=== PATIENT | female | born 1980 | race African-American/Black ===

== ENCOUNTER 2016-06-07 14:42 | Emergency (ER) | payer OTHER ==
[~2016-06-07] VITALS: Ht 167.6 cm; Wt 104.3 kg
[~2016-06-07 14:42] MED LIST: AMOX1TAB61 PO; ASCO500T PO; HYDR12.58 PO; IBUP200T77 PO; MULT-470 PO; ONDA4TAB10 SL
[2016-06-07 15:00] VITALS: BP 131/72
[2016-06-07] MEDS ORDERED: cefTRIAXone IM 250 MG VIAL IM ONE (15:00)
[2016-06-07] MEDS ORDERED: metroNIDAZOLE 500 MG TABLET PO ONE (15:00)
[2016-06-07] MEDS ORDERED: AZITHROMYCIN 250 MG TABLET. PO ONE (15:00)
--- NOTE | 2016-06-07 15:08 | PHYS DOC ---
Past Medical History Past Medical History: No Pertinent History Past Surgical History: , Tubal ligation Alcohol Use: None Drug Use: None Adult General Chief Complaint Chief Complaint: VAGINAL PROBLEM HPI HPI Patient is a 35 year old female with no significant medical history who presents with vaginal discharge and irritation for a couple days. Patient states she is going through a divorce. She states she was from the for couple months. She states they were trying to work things out. She states the and her had unprotected sex recently, patient states she started having vaginal irritation and discharge after that. Patient states she has history of tubal ligation. Review of Systems Review of Systems Constitutional: Denies fever or chills [] Eyes: Denies change in visual acuity, redness, or eye pain [] HENT: Denies nasal congestion or sore throat [] Respiratory: Denies cough or shortness of breath [] Cardiovascular: No additional information not addressed in HPI [] GI: Denies abdominal pain, nausea, vomiting, bloody stools or diarrhea [] : vaginal discharge and irritation Musculoskeletal: Denies back pain or joint pain [] Integument: Denies rash or skin lesions [] Neurologic: Denies headache, focal weakness or sensory changes [] Endocrine: Denies polyuria or polydipsia [] Current Medications Current Medications Current Medications Medications (Trade) Dose Ordered Sig/Jason Start Time Stop Time Status Last Admin Dose Admin Azithromycin (Zithromax) 1,000 mg 1X ONCE 06/07/16 15:00 06/07/16 15:01 DC 06/07/16 15:06 1,000 MG Ceftriaxone Sodium (Rocephin Im) 250 mg 1X ONCE 06/07/16 15:00 06/07/16 15:01 DC 06/07/16 15:07 250 MG Fluconazole (Diflucan) 150 mg 1X ONCE 06/07/16 15:45 06/07/16 15:46 UNV Metronidazole (Flagyl) 2,000 mg 1X ONCE 06/07/16 15:00 06/07/16 15:01 DC 06/07/16 15:07 2,000 MG Allergies Allergies Allergies Coded Allergies Type Severity Reaction Last Updated Verified No Known Drug Allergies 01/02/16 No Physical Exam Physical Exam Constitutional: Well developed, well nourished, no acute distress, non-toxic appearance. [] HENT: Normocephalic, atraumatic, bilateral external ears normal, oropharynx moist, no oral exudates, nose normal. [] Eyes: PERRLA, EOMI, conjunctiva normal, no discharge. [] Neck: Normal range of motion, no tenderness, supple, no stridor. [] Cardiovascular:Heart rate regular rhythm, no murmur [] Lungs & Thorax: Bilateral breath sounds clear to auscultation [] Abdomen: Bowel sounds normal, soft, no tenderness, no masses, no pulsatile masses. [] Pelvic exam External pelvic appears normal, cervix is closed no CMT. No adnexal tenderness. Small amount of greenish discharge in the vaginal vault. Skin: Warm, dry, no erythema, no rash. [] Back: No tenderness, no CVA tenderness. [] Extremities: No tenderness, no cyanosis, no clubbing, ROM intact, no edema. [] Neurologic: Alert and oriented X 3, normal motor function, normal sensory function, no focal deficits noted. [] Psychologic: Affect normal, judgement normal, mood normal. [] Current Patient Data Lab Values Laboratory Tests Test 06/07/16 14:50 Urine Collection Type Unknown Urine Color [place] Urine Clarity Clear Urine pH 7.0 Urine Specific [place] 1.025 Urine Protein Negativemg/dL (NEG-TRACE) Urine Glucose (UA) Negativemg/dL (NEG) Urine Ketones (Stick) Tracemg/dL (NEG) Urine Blood Negative (NEG) Urine Nitrite Negative (NEG) Urine Bilirubin Small (NEG) Urine Urobilinogen Dipstick 4.0mg/dL (0.2 mg/dL) Urine Leukocyte Esterase Large (NEG) Urine RBC 0/HPF (0-2) Urine WBC 20-40/HPF (0-4) Urine Squamous Epithelial Cells Mod/LPF Urine Bacteria Few/HPF (0-FEW) Urine Hyaline Casts Occasional/HPF Urine Mucus Marked/LPF Urine Yeast Present/HPF Microbiology 06/07/16 Wet Prep - Final, Complete EKG EKG [] Radiology/Procedures Radiology/Procedures [] Course & Med Decision Making Course & Med Decision Making Pertinent Labs and Imaging studies reviewed. (See chart for details) Patient is in the ED with concern for STD because she's had vaginal itching and irritation for couple days. She's had unprotected sex with the ex- who she is going through a divorce with. She is given standard STD treatment of Flagyl Rocephin and azithromycin. Her wet prep came back positive for yeast infection same as her urine. Her urine was positive for UTI. She was discharged with fluconazole. Discharged with Bactrim for UTI. Encouraged to contact her sex partners let them know she was treated for STDs and ask them to seek treatment too. Encouraged to follow-up with her own PCP or the health department for further STD concerns. Dragon Disclaimer Dragon Disclaimer This electronic medical record was generated, in whole or in part, using a voice recognition dictation system. Departure Departure Impression: Primary Impression: Urinary tract infection Additional Impressions: Concern about STD in female without diagnosis Yeast infection Disposition: 01 HOME, SELF-CARE Condition: STABLE Referrals: UNKNOWN PCP NAME (PCP) Follow-up with your own doctor in 1-2 weeks Patient Instructions: Urinary Tract Infection Additional Instructions: You were seen for STD concerns. You were treated prophylaxis in the ED. You have yeast infection which causes vaginal discharge. You also have urinary tract infection. We gave you antibiotic prescription for this. Take it as prescribed. Follow-up with your own doctor or the health department in 1-2 weeks. Please contact all your sex partners, let them know you were treated for STDs and ask them to seek treatment too. Use protection all the time. Scripts Fluconazole 150 Mg Tablet1 Mg PO ONCE #1 TAB Take it in 7 days Prov:TAHIRA PERDUE APRN 06/07/16 Sulfamethoxazole/Trimethoprim (Bactrim Ds Tablet)1 Each Tablet1 Tab PO BID #6 TAB Prov:TAHIRA PERDUE APRN 06/07/16 Problem Qualifiers Primary Impression: Urinary tract infection Urinary tract infection type: acute cystitis Hematuria presence: without hematuria Qualified Code: N30.00 - Acute cystitis without hematuria TAHIRA PERDUE APRN Jun 07, 2016 15:08
[2016-06-07 15:17] LABS: BILIRUBIN,URINE SMALL (NEG); GLUCOSE,URINE NEGATIVE (NEG); NITRITE,URINE NEGATIVE (NEG); PROTEIN,URINE NEGATIVE (NEG-TRACE)
[2016-06-07 15:41] LABS: BACTERIA,URINE FEW /HPF (0-FEW); RBC,URINE 0 /HPF (0-2); SQUAMOUS EPITHELIAL CELL,UR MOD /LPF; WBC,URINE 20-40 /HPF (0-4); YEAST,URINE PRESENT /HPF
[2016-06-07] MEDS ORDERED: FLUCONAZOLE 100 MG TABLET. PO ONE (15:45)
[2016-06-07] MEDS ORDERED: SULF1TAB24 PO (15:52)
[2016-06-07] MEDS ORDERED: FLUC150T2 PO (15:52)
== END 2016-06-07 16:05 | disposition home or self-care (01) ==
LOC: ER 14:42
DX: N30.00 Acute cystitis without hematuria (principal); B37.3 Candidiasis of vulva and vagina; Z98.51 Tubal ligation status
CPT/HCPCS: 81001; 87491; 87591; 96372; 99284; J0696; Q0111; Q0144

== ENCOUNTER 2016-08-05 19:18 | Emergency (ER) | payer OTHER ==
[~2016-08-05] VITALS: Ht 167.6 cm; Wt 99.8 kg
[~2016-08-05 19:18] MED LIST changes: +FLUC150T2 PO; +SULF1TAB24 PO
[2016-08-05 20:17] LABS: BILIRUBIN,URINE NEGATIVE (NEG); GLUCOSE,URINE NEGATIVE (NEG); NITRITE,URINE NEGATIVE (NEG); PROTEIN,URINE NEGATIVE (NEG-TRACE)
[2016-08-05] MEDS ORDERED: IV NORMAL SALINE 1000ML BAG 1,000 ML IV SCH (20:29)
[2016-08-05 20:30] VITALS: BP 142/82
[2016-08-05] MEDS ORDERED: fentaNYL PF VIAL 100 MCG/2 ML VIAL IV PRN (20:30)
[2016-08-05] MEDS ORDERED: ONDANSETRON PF 4 MG/2 ML VIAL. IV ONE (20:30)
[2016-08-05 20:31] LABS: BACTERIA,URINE MODERATE /HPF (0-FEW); RBC,URINE OCC /HPF (0-2); SQUAMOUS EPITHELIAL CELL,UR OCC /LPF
--- NOTE | 2016-08-05 20:38 | PHYS DOC ---
Past Medical History Past Medical History: Other Additional Past Medical Histor: BLADDER INFECTION Past Surgical History: , Tubal ligation Alcohol Use: None Drug Use: None Adult General Chief Complaint Chief Complaint: FLANK PAIN HPI HPI Patient is a 35 year old female who presents with complaint of left-sided flank pain. Patient states her symptoms started earlier this morning at approximately 3:00. Patient states that the pain has been persistent since onset of symptoms. Patient states that she has had similar symptoms in the past that were associated with pyelonephritis. Patient denies any associated fever, nausea, vomiting, or diarrhea. Patient states that the pain seems to worsen with movement. Patient states that her urine has been dark yellow but denies dysuria or visible blood. The patient rates her pain currently as 7 out of 10. Patient states that she took Tylenol around lunchtime earlier today with no relief in symptoms. The patient states that she is currently on Depo-Provera and does not remember when she had her last menstrual period area patient also states that she has had a bilateral tubal ligation. Review of Systems Review of Systems Constitutional: Denies fever or chills [] Eyes: Denies change in visual acuity, redness, or eye pain [] HENT: Denies nasal congestion or sore throat [] Respiratory: Denies cough or shortness of breath [] Cardiovascular: Denies chest pain or edema [] GI: Denies abdominal pain, nausea, vomiting, bloody stools or diarrhea [] : Denies dysuria or hematuria [] Musculoskeletal: Left flank pain [] Integument: Denies rash or skin lesions [] Neurologic: Denies headache, focal weakness or sensory changes [] Current Medications Current Medications Current Medications Medications (Trade) Dose Ordered Sig/Jason Start Time Stop Time Status Last Admin Dose Admin Fentanyl Citrate (Fentanyl 2ml Vial) 50 mcg PRN Q15MIN PRN 08/05/16 20:30 08/06/16 20:29 08/05/16 20:44 50 MCG Ondansetron HCl (Zofran) 4 mg 1X ONCE 08/05/16 20:30 08/05/16 20:35 DC 08/05/16 20:43 4 MG Sodium Chloride 1,000 ml @ 1,000 mls/hr Q1H 08/05/16 20:29 08/05/16 21:28 DC 08/05/16 20:43 1,000 MLS/HR Allergies Allergies Allergies Coded Allergies Type Severity Reaction Last Updated Verified No Known Drug Allergies 01/02/16 No Physical Exam Physical Exam Constitutional: Alert, afebrile, appears in mild to moderate discomfort. [] HENT: Normocephalic, atraumatic, bilateral external ears normal, oropharynx moist, no oral exudates, nose normal. [] Eyes: PERRLA, EOMI, conjunctiva normal, no discharge. [] Neck: Normal range of motion, no tenderness, supple, no stridor. [] Cardiovascular:Heart rate regular rhythm, no murmur [] Lungs & Thorax: Bilateral breath sounds clear to auscultation [] Abdomen: Bowel sounds normal, soft, no tenderness, no masses, no pulsatile masses. [] Skin: Warm, dry, no erythema, no rash. [] Back: No midline tenderness, left CVA tenderness present flank ecchymosis. [] Extremities: No tenderness, no cyanosis, no clubbing, ROM intact, no edema. [] Neurologic: Alert and oriented X 3, normal motor function, normal sensory function, no focal deficits noted. [] Current Patient Data Vital Signs Vital Signs Date Time Temp Pulse Resp B/P (MAP) Pulse Ox O2 Delivery O2 Flow Rate FiO2 08/05/16 20:44 27 100 08/05/16 19:32 98.3 102 160/98 (118) Room Air 98.3 Lab Values Laboratory Tests Test 08/05/16 19:25 08/05/16 19:35 08/05/16 21:10 Urine Color Yellow Urine Clarity Clear Urine pH 6.0 Urine Specific [place] 1.025 Urine Protein Negative mg/dL (NEG-TRACE) Urine Glucose (UA) Negative mg/dL (NEG) Urine Ketones (Stick) Trace mg/dL (NEG) Urine Blood Negative (NEG) Urine Nitrite Negative (NEG) Urine Bilirubin Negative (NEG) Urine Urobilinogen Dipstick 4.0 mg/dL (0.2 mg/dL) Urine Leukocyte Esterase Negative (NEG) Urine RBC Occ /HPF (0-2) Urine WBC 1-4 /HPF (0-4) Urine Squamous Epithelial Cells Occ /LPF Urine Bacteria Moderate /HPF (0-FEW) Urine Mucus Mod /LPF White Blood Count 4.9 x10^3/uL (4.0-11.0) Red Blood Count 4.73 x10^6/uL (3.50-5.40) Hemoglobin 12.0 g/dL (12.0-15.5) Hematocrit 37.5 % (36.0-47.0) Mean Corpuscular Volume 79 fL (79-100) Mean Corpuscular Hemoglobin 25 pg (25-35) Mean Corpuscular Hemoglobin Concent 32 g/dL (31-37) Red Cell Distribution Width 14.4 % (11.5-14.5) Platelet Count 213 x10^3/uL (140-400) Neutrophils (%) (Auto) 48 % (31-73) Lymphocytes (%) (Auto) 45 % (24-48) Monocytes (%) (Auto) 5 % (0-9) Eosinophils (%) (Auto) 2 % (0-3) Basophils (%) (Auto) 1 % (0-3) Neutrophils # (Auto) 2.4 x10^3uL (1.8-7.7) Lymphocytes # (Auto) 2.2 x10^3/uL (1.0-4.8) Monocytes # (Auto) 0.2 x10^3/uL (0.0-1.1) Eosinophils # (Auto) 0.1 x10^3/uL (0.0-0.7) Basophils # (Auto) 0.0 x10^3/uL (0.0-0.2) Sodium Level 143 mmol/L (136-145) Potassium Level 3.1 mmol/L (3.5-5.1) L Chloride Level 108 mmol/L (98-107) H Carbon Dioxide Level 27 mmol/L (21-32) Anion Gap 8 (6-14) Blood Urea Nitrogen 10 mg/dL (7-20) Creatinine 0.9 mg/dL (0.6-1.0) Estimated GFR (Cockcroft-Gault) 86.7 BUN/Creatinine Ratio 11 (6-20) Glucose Level 94 mg/dL (70-99) Calcium Level 8.5 mg/dL (8.5-10.1) Total Bilirubin 0.2 mg/dL (0.2-1.0) Aspartate Amino Transferase (AST) 16 U/L (15-37) Alanine Aminotransferase (ALT) 17 U/L (14-59) Alkaline Phosphatase 66 U/L (46-116) Total Protein 7.7 g/dL (6.4-8.2) Albumin 3.6 g/dL (3.4-5.0) Albumin/Globulin Ratio 0.9 (1.0-1.7) L Lipase 83 U/L (73-393) Laboratory Tests 08/05/16 19:35 Laboratory Tests 08/05/16 21:10 EKG EKG Not performed [] Radiology/Procedures Radiology/Procedures [address] [place] [address] IMAGING REPORT Signed PATIENT: HERNESTO PENNINGTON ACCOUNT: [id number] : 1980 LOCATION: ER AGE: 35 SEX: F EXAM STATUS: REG ER ORD. PHYSICIAN: CONSTANCE DUVAL MD REASON: left flank pain PROCEDURE: CT ABDOMEN PELVIS WO CONTRAST History: Worsening left flank pain since 0300 hours. Comparison: None. Technique: CT of the abdomen and pelvis was performed without intravenous or oral contrast. Exposure: One or more of the following individualized dose reduction techniques were utilized for this examination: 1. Automated exposure control 2. Adjustment of the mA and/or kV according to patient size 3. Use of iterative reconstruction technique Findings: Evaluation of solid organs of the abdomen and pelvis is limited by lack of intravenous contrast. Evaluation of enteric structures may be limited by lack of oral contrast. Liver is unremarkable. Multiple coarse calcifications are seen involving the spleen. Pancreas, gallbladder, and bilateral adrenal glands unremarkable. Bilateral kidneys and ureters are free of stone or obstruction. No bowel obstruction or inflammation is seen. Appendix is without evidence of inflammation. Small epigastric ventral hernia containing fat only is seen. Urinary bladder is unremarkable. Uterus and adnexa have unremarkable CT appearance. No free air or free fluid is seen in the abdomen or pelvis. Impression: No acute abnormality identified in the abdomen or pelvis. No evidence of urinary stone. Electronically signed by: Brad Guerrero MD (08/05/2016 9:16 PM) DICTATED and SIGNED BY: BRAD GUERRERO MD DATE: 08/05/162109 CC: CONSTANCE DUVAL MD; UNKNOWN PCP NAME ~ [] Course & Med Decision Making Course & Med Decision Making Pertinent Labs and Imaging studies reviewed. (See chart for details) Patient was given fentanyl, Zofran, and IV fluids. On reevaluation, patient's symptoms have improved. Patient shows evidence of bacteria and white blood cells in her urinalysis. Patient's CT negative for acute pathology. Patient's symptoms appear consistent with acute pyelonephritis. Patient treated with Naprosyn and Keflex in the emergency department. Advise follow-up in 3 days a primary doctor and return to emergency department for any worsening symptoms. Patient voiced understanding and in agreement with treatment plan. Dragon Disclaimer Dragon Disclaimer This electronic medical record was generated, in whole or in part, using a voice recognition dictation system. Departure Departure Impression: Primary Impression: Acute pyelonephritis Disposition: HOME, SELF-CARE Condition: STABLE Referrals: UNKNOWN PCP NAME (PCP) Patient Instructions: Pyelonephritis, Adult Additional Instructions: Follow-up to primary doctor in 3 days for reevaluation. Return to emergency department for any worsening symptoms. Scripts Cephalexin (KEFLEX) 500 Mg Capsule 1 CAP PO TID, #30 CAP Prov: CONSTANCE DUVAL MD 08/05/16 Naproxen (NAPROSYN) 500 Mg Tablet 1 TAB PO BID, #20 TAB 0 Refills Prov: CONSTANCE DUVAL MD 08/05/16 CONSTANCE DUVAL MD Aug 05, 2016 20:37
[2016-08-05 20:41] LABS: BASO % 1 % (0-3); EOS % 2 % (0-3); HEMATOCRIT 37.5 % (36.0-47.0); LYMPH # 2.2 x10^3/uL (1.0-4.8); LYMPH % 45 % (24-48); MEAN CORPUSCULAR HEMOGLOBIN 25 pg (25-35); MEAN CORPUSCULAR HGB CONC 32 g/dL (31-37); MEAN CORPUSCULAR VOLUME 79 fL (79-100); MONO % 5 % (0-9); NEUT % 48 % (31-73); PLATELET COUNT 213 x10^3/uL (140-400); RED BLOOD COUNT 4.73 x10^6/uL (3.50-5.40); RED CELL DISTRIBUTION WIDTH 14.4 % (11.5-14.5); WHITE BLOOD COUNT 4.9 x10^3/uL (4.0-11.0)
--- NOTE | 2016-08-05 21:20 | RAD ---
History: Worsening left flank pain since 0300 hours. Comparison: None. Technique: CT of the abdomen and pelvis was performed without intravenous or oral contrast. Exposure: One or more of the following individualized dose reduction techniques were utilized for this examination: 1. Automated exposure control 2. Adjustment of the mA and/or kV according to patient size 3. Use of iterative reconstruction technique Findings: Evaluation of solid organs of the abdomen and pelvis is limited by lack of intravenous contrast. Evaluation of enteric structures may be limited by lack of oral contrast. Liver is unremarkable. Multiple coarse calcifications are seen involving the spleen. Pancreas, gallbladder, and bilateral adrenal glands unremarkable. Bilateral kidneys and ureters are free of stone or obstruction. No bowel obstruction or inflammation is seen. Appendix is without evidence of inflammation. Small epigastric ventral hernia containing fat only is seen. Urinary bladder is unremarkable. Uterus and adnexa have unremarkable CT appearance. No free air or free fluid is seen in the abdomen or pelvis. Impression: No acute abnormality identified in the abdomen or pelvis. No evidence of urinary stone. Electronically signed by: Brad Guerrero MD (08/05/2016 9:16 PM)
[2016-08-05 21:30] LABS: CALCIUM 8.5 mg/dL (8.5-10.1); CREATININE 0.9 mg/dL (0.6-1.0); GFR 86.7; POTASSIUM 3.1 mmol/L (3.5-5.1)
[2016-08-05 21:36] LABS: ALBUMIN 3.6 g/dL (3.4-5.0); ALBUMIN/GLOBULIN RATIO 0.9 (1.0-1.7); TOTAL BILIRUBIN 0.2 mg/dL (0.2-1.0); TOTAL PROTEIN 7.7 g/dL (6.4-8.2)
[2016-08-05] MEDS ORDERED: CEPH-264 PO (21:46)
[2016-08-05] MEDS ORDERED: NAPR500T PO (21:46)
[2016-08-05] MEDS ORDERED: CEPHALEXIN 250 MG CAPSULE. PO ONE (22:00)
[2016-08-05] MEDS ORDERED: NAPROXEN 500 MG TABLET PO ONE (22:00)
== END 2016-08-05 22:00 | disposition home or self-care (01) ==
LOC: ER 19:18
DX: N10 Acute pyelonephritis (principal); Z98.51 Tubal ligation status
CPT/HCPCS: 36415; 74176; 80053; 81001; 83690; 85027; 87086; 96361; 96374; 96375; 99285; J2405; J3010; J7030

== ENCOUNTER 2016-11-21 15:03 | Emergency (ER) | payer OTHER ==
[~2016-11-21] VITALS: Ht 167.6 cm; Wt 99.8 kg
[~2016-11-21 15:03] MED LIST changes: +CEPH-264 PO; +NAPR500T PO
[2016-11-21 15:22] VITALS: BP 153/74
[2016-11-21 15:42] LABS: BILIRUBIN,URINE NEGATIVE (NEG); GLUCOSE,URINE NEGATIVE (NEG); NITRITE,URINE NEGATIVE (NEG); PROTEIN,URINE NEGATIVE (NEG-TRACE)
[2016-11-21 15:54] LABS: BACTERIA,URINE FEW /HPF (0-FEW); RBC,URINE 0 /HPF (0-2); SQUAMOUS EPITHELIAL CELL,UR MOD /LPF; WBC,URINE OCC /HPF (0-4)
--- NOTE | 2016-11-21 15:55 | PHYS DOC ---
Past Medical History Past Medical History: Other Additional Past Medical Histor: BLADDER INFECTION Past Surgical History: , Tubal ligation Alcohol Use: None Drug Use: None Adult General Chief Complaint Chief Complaint: COUGH HPI HPI Patient is a 36 year old female who presents with a productive cough and nasal congestion for 1-1/2 weeks and dysuria for 3 days. Patient denies any fever. Review of Systems Review of Systems Constitutional: Denies fever or chills [] Eyes: Denies change in visual acuity, redness, or eye pain [] HENT: nasal congestion, hoarse voice or sore throat [] Respiratory: cough, denies shortness of breath [] Cardiovascular: No additional information not addressed in HPI [] GI: Denies abdominal pain, nausea, vomiting, bloody stools or diarrhea [] : dysuria, denies hematuria [] Musculoskeletal: Denies back pain or joint pain [] Integument: Denies rash or skin lesions [] Neurologic: Denies headache, focal weakness or sensory changes [] Allergies Allergies Allergies Coded Allergies Type Severity Reaction Last Updated Verified No Known Drug Allergies 01/02/16 No Physical Exam Physical Exam Constitutional: Well developed, well nourished, no acute distress, non-toxic appearance. [] HENT: Normocephalic, atraumatic, bilateral external ears normal, oropharynx moist, no oral exudates Patient sounds congested nasally, her voice is hoarse. mild maxillary sinus tenderness Eyes: PERRLA, EOMI, conjunctiva normal, no discharge. [] Neck: Normal range of motion, no tenderness, supple, no stridor. [] Cardiovascular:Heart rate regular rhythm, no murmur [] Lungs & Thorax: Bilateral breath sounds clear to auscultation [] Abdomen: Bowel sounds normal, soft, no tenderness, no masses, no pulsatile masses. [] Skin: Warm, dry, no erythema, no rash. [] Back: No tenderness, no CVA tenderness. [] Extremities: No tenderness, no cyanosis, no clubbing, ROM intact, no edema. [] Neurologic: Alert and oriented X 3, normal motor function, normal sensory function, no focal deficits noted. [] Psychologic: Affect normal, judgement normal, mood normal. [] Current Patient Data Vital Signs Vital Signs Date Time Temp Pulse Resp B/P (MAP) Pulse Ox O2 Delivery O2 Flow Rate FiO2 10/13/17 15:22 98.6 82 20 153/74 (100) 98 Room Air 98.6 Lab Values Laboratory Tests Test 11/21/16 15:36 Urine Collection Type Unknown Urine Color Yellow Urine Clarity Clear Urine pH 7.0 Urine Specific [place] 1.025 Urine Protein Negative mg/dL (NEG-TRACE) Urine Glucose (UA) Negative mg/dL (NEG) Urine Ketones (Stick) Negative mg/dL (NEG) Urine Blood Negative (NEG) Urine Nitrite Negative (NEG) Urine Bilirubin Negative (NEG) Urine Urobilinogen Dipstick 1.0 mg/dL (0.2 mg/dL) Urine Leukocyte Esterase Negative (NEG) Urine RBC 0 /HPF (0-2) Urine WBC Occ /HPF (0-4) Urine Squamous Epithelial Cells Mod /LPF Urine Bacteria Few /HPF (0-FEW) Urine Mucus Mod /LPF EKG EKG [] Radiology/Procedures Radiology/Procedures [] Course & Med Decision Making Course & Med Decision Making Pertinent Labs and Imaging studies reviewed. (See chart for details) Patient's physical exam and symptoms are consistent with acute sinusitis. She is also complaining of dysuria. Urine analysis is negative for infection. Patient will be discharged with a give Augmentin and prednisone. She is instructed to take [id number] decongestant. Follow-up with primary care doctor in 1-2 weeks. Dragon Disclaimer Dragon Disclaimer This electronic medical record was generated, in whole or in part, using a voice recognition dictation system. Departure Departure Impression: Primary Impression: Acute sinusitis Additional Impressions: Cough Dysuria Disposition: 01 HOME, SELF-CARE Condition: STABLE Referrals: UNKNOWN PCP NAME (PCP) followup with your docctor in one to two weeks Patient Instructions: Cough, Adult, [id number], Dysuria, Sinusitis Additional Instructions: You were seen for a sinus infection. Your urine was negative for any infection. Please complete your oral antibiotics. Use the rest of the prescribed medicines as ordered, you can also take [id number] decongestants to help with the nasal congestion. Scripts Fluconazole (DIFLUCAN) 150 Mg Tablet 1 TAB PO ONCE, #1 TAB 1 Refill Take one today and one in seven days Prov: MUTUNGA,TAHIRA ENT NURSE 11/21/16 Guaifenesin/Pseudoephedrne Hcl (MUCINEX D ER TABLET) 1 Each Tab.er.12h 1 TAB PO BID, #20 TAB Prov: TAHIRA PERDUE APRN 11/21/16 Benzonatate (TESSALON PERLE) 100 Mg Capsule 1 CAP PO TID, #30 CAP Prov: TAHIRA PERDUE APRN 11/21/16 Amoxicillin/Potassium Clav (AUGMENTIN 875-125 TABLET) 1 Each Tablet 1 TAB PO BID, #20 TAB Prov: TAHIRA PERDUE APRN 11/21/16 Prednisone (PREDNISONE) 50 Mg Tablet 1 TAB PO DAILY, #5 TAB Prov: TAHIRA PERDUE APRN 11/21/16 Problem Qualifiers Primary Impression: Acute sinusitis Sinusitis location: maxillary Recurrence: non-recurrent Qualified Codes: J01.00 - Acute maxillary sinusitis, unspecified TAHIRA PERDUE APRN Nov 21, 2016 15:55
[2016-11-21] MEDS ORDERED: GUAI-40 PO (16:01)
[2016-11-21] MEDS ORDERED: AMOX1TAB61 PO (16:01)
[2016-11-21] MEDS ORDERED: PRED50TA PO (16:01)
[2016-11-21] MEDS ORDERED: BENZ100C PO (16:01)
[2016-11-21] MEDS ORDERED: FLUC150T PO (16:05)
== END 2016-11-21 16:06 | disposition home or self-care (01) ==
LOC: ER 15:03
DX: J01.00 Acute maxillary sinusitis, unspecified (principal); R30.0 Dysuria; R05 Cough
CPT/HCPCS: 81001; 99283

== ENCOUNTER 2017-01-02 11:59 | Emergency (ER) | payer OTHER ==
[~2017-01-02] VITALS: Ht 167.6 cm; Wt 101.7 kg
[~2017-01-02 11:59] MED LIST changes: +BENZ100C PO; +FLUC150T PO; +GUAI-40 PO; +PRED50TA PO
[2017-01-02] MEDS ORDERED: IV NORMAL SALINE 1000ML BAG 1,000 ML IV ONE (12:30)
[2017-01-02] MEDS ORDERED: KETOROLAC 15 MG/ML VIAL. IV ONE (12:30)
[2017-01-02] MEDS ORDERED: HYOSCYAMINE 0.125 MG TAB.RAPDIS PO PRN (12:30)
[2017-01-02] MEDS ORDERED: ONDANSETRON PF 4 MG/2 ML VIAL. IV ONE ×2 (12:30)
[2017-01-02 12:40] LABS: BASO % 1 % (0-3); EOS % 1 % (0-3); HEMATOCRIT 36.5 % (36.0-47.0); HEMOGLOBIN 11.7 g/dL (12.0-15.5); LYMPH # 1.4 x10^3/uL (1.0-4.8); LYMPH % 23 % (24-48); MEAN CORPUSCULAR HEMOGLOBIN 25 pg (25-35); MEAN CORPUSCULAR HGB CONC 32 g/dL (31-37); MEAN CORPUSCULAR VOLUME 79 fL (79-100); MONO % 4 % (0-9); NEUT % 72 % (31-73); PLATELET COUNT 196 x10^3/uL (140-400); RED BLOOD COUNT 4.62 x10^6/uL (3.50-5.40); RED CELL DISTRIBUTION WIDTH 14.9 % (11.5-14.5); WHITE BLOOD COUNT 6.4 x10^3/uL (4.0-11.0)
[2017-01-02 12:43] LABS: BILIRUBIN,URINE NEGATIVE (NEG); GLUCOSE,URINE NEGATIVE (NEG); NITRITE,URINE NEGATIVE (NEG); PH,URINE 6.5; PROTEIN,URINE NEGATIVE (NEG-TRACE); UROBILINOGEN,URINE 0.2 mg/dL (0.2 mg/dL)
[2017-01-02 12:54] LABS: BACTERIA,URINE 0 /HPF (0-FEW); RBC,URINE 0 /HPF (0-2); SQUAMOUS EPITHELIAL CELL,UR MANY /LPF; WBC,URINE RARE /HPF (0-4)
[2017-01-02 12:54] LABS: CREATININE 0.9 mg/dL (0.6-1.0); GFR 86.2; POTASSIUM 3.4 mmol/L (3.5-5.1)
[2017-01-02 13:05] LABS: ALBUMIN 3.7 g/dL (3.4-5.0); ALBUMIN/GLOBULIN RATIO 0.8 (1.0-1.7); TOTAL BILIRUBIN 0.5 mg/dL (0.2-1.0); TOTAL PROTEIN 8.3 g/dL (6.4-8.2)
--- NOTE | 2017-01-02 14:35 | RAD ---
Right upper quadrant ultrasound 01/02/2017 Indication: Right upper quadrant pain. Comparison study: None Discussion: Visualized portions of the pancreas are unremarkable. Visualized portions of the aorta and IVC are unremarkable. Liver is normal in size measuring 13 cm longitudinally. Liver is normal in appearance without focal lesion. Hepatic echotexture is unremarkable. The gallbladder is partially decompressed but otherwise unremarkable. No evidence of wall thickening, stones, or sludge is seen. Common bile duct is nondilated at 3 mm. The right kidney is normal in appearance measuring 11.5 cm in length. Impression: Unremarkable sonographic appearance of the right upper quadrant.
[2017-01-02 14:52] VITALS: BP 121/69
[2017-01-02] MEDS ORDERED: OMEP20TA63 PO (15:01)
--- NOTE | 2017-01-02 15:02 | PHYS DOC ---
Past Medical History Past Medical History: Hypertension, Other Additional Past Medical Histor: BLADDER INFECTION Past Surgical History: , Tubal ligation Alcohol Use: None Drug Use: None Adult General Chief Complaint Chief Complaint: ABDOMINAL PAIN HPI HPI Patient is a 36 year old female who presents here today complaining of abdominal pain. Patient was of the abdominal pain started yesterday evening. Patient reports she has a history of hypertension, no diabetes liver longer kidney problems. Patient has had a and a bilateral tubal ligation. Patient has any tobacco alcohol or drugs. Patient is not allergic to any medications. Patient is unsure when her last menstrual period is secondary to having IM Shots. Patient has any fevers shakes chills nausea vomiting or diarrhea. Patient reports no melena or bright red blood per rectum. No dysuria frequency or urgency. Patient denies any exacerbating or relieving factors. Patient reports that the pain is constant. Patient reports her last by mouth intake was approximately one hour ago. Patient had a [employer] corado cheeseburger after the pain started without any improvement. Patient thought she was having hunger pains and thought that eating the cheeseburger. Help. Review of systems: Constitutional: Denies fever or chills Eyes: Denies change in visual acuity, redness, or eye pain HENT: Denies nasal congestion or sore throat Respiratory: Denies cough or shortness of breath All other systems were reviewed and found to be within normal limits, except as documented in this note. Physical exam: Constitutional: Well developed, well nourished, no acute distress, non-toxic appearance. HENT: Normocephalic, atraumatic, bilateral external ears normal, nose normal. Eyes: PERRLA, EOMI, conjunctiva normal, no discharge. Neck: Normal range of motion, no tenderness, supple, no stridor. Cardiovascular: Heart rate regular rhythm, Lungs & Thorax: Bilateral breath sounds clear to auscultation Abdomen: No abdominal distention. Soft no rebound or guarding. Mild tenderness to palpation in midepigastric area. No Nunez sign. No McBurney's point tenderness. No signs or symptoms O be consistent with an acute surgical abdomen. Skin: Warm, dry, no erythema, no rash. Back: Normal spinal curvature Extremities: No tenderness, no cyanosis, no clubbing, ROM intact, no edema. Neurologic: Alert and oriented X 3, normal motor function, normal sensory function, no focal deficits noted. Psychologic: Affect normal, judgement normal, mood normal. Patient had a normal CBC, CMP, lipase. Her sound of the right upper quadrant revealed no acute pathology. Assessment and plan: 1. 36-year-old female who presents here today secondary to abdominal pain. Patient's ER workup is been unremarkable. Patient's ER hospital course is been significant for normal labs and a lipase. Patient has had normal CBC, CMP, lipase. Patient has received adequate analgesia in the ER. Patient's clinically and hemodynamically stable. Patient reports almost completely pain free after analgesia. Patient be discharged home with prescription for Prilosec, Zofran and instructions to follow-up with her primary care physician for further evaluation. At this time patient not present with any acute or emergent issues that need to be addressed as an inpatient or further in the ER. Patient understands limitations the ER workup and understands the need to follow-up with primary care physician for definitive diagnosis. Current Medications Current Medications Current Medications Medications (Trade) Dose Ordered Sig/Jason Start Time Stop Time Status Last Admin Dose Admin Hyoscyamine (Anaspaz) 0.125 mg PRN Q4HRS PRN 01/02/17 12:30 01/02/17 13:15 0.125 MG Ketorolac Tromethamine (Toradol) 30 mg 1X ONCE 01/02/17 12:30 01/02/17 12:34 DC 01/02/17 13:12 30 MG Ondansetron HCl (Zofran) 4 mg 1X ONCE 01/02/17 12:30 01/02/17 13:04 DC Sodium Chloride 1,000 ml @ 1,000 mls/hr 1X ONCE 01/02/17 12:30 01/02/17 13:29 DC 01/02/17 13:09 1,000 MLS/HR Allergies Allergies Allergies Coded Allergies Type Severity Reaction Last Updated Verified No Known Drug Allergies 01/02/16 No Current Patient Data Vital Signs Vital Signs Date Time Temp Pulse Resp B/P (MAP) Pulse Ox O2 Delivery O2 Flow Rate FiO2 01/02/17 14:52 71 18 121/69 (86) 97 Room Air 01/02/17 12:05 98.3 98.3 Lab Values Laboratory Tests Test 01/02/17 12:04 01/02/17 12:18 01/02/17 12:25 Urine Collection Type Unknown Urine Color Yellow Urine Clarity Clear Urine pH 6.5 Urine Specific [place] 1.015 Urine Protein Negative mg/dL (NEG-TRACE) Urine Glucose (UA) Negative mg/dL (NEG) Urine Ketones (Stick) Negative mg/dL (NEG) Urine Blood Negative (NEG) Urine Nitrite Negative (NEG) Urine Bilirubin Negative (NEG) Urine Urobilinogen Dipstick 0.2 mg/dL (0.2 mg/dL) Urine Leukocyte Esterase Small (NEG) Urine RBC 0 /HPF (0-2) Urine WBC Rare /HPF (0-4) Urine Squamous Epithelial Cells Many /LPF Urine Bacteria 0 /HPF (0-FEW) POC Urine HCG, Qualitative Hcg negative (Negative) White Blood Count 6.4 x10^3/uL (4.0-11.0) Red Blood Count 4.62 x10^6/uL (3.50-5.40) Hemoglobin 11.7 g/dL (12.0-15.5) L Hematocrit 36.5 % (36.0-47.0) Mean Corpuscular Volume 79 fL (79-100) Mean Corpuscular Hemoglobin 25 pg (25-35) Mean Corpuscular Hemoglobin Concent 32 g/dL (31-37) Red Cell Distribution Width 14.9 % (11.5-14.5) H Platelet Count 196 x10^3/uL (140-400) Neutrophils (%) (Auto) 72 % (31-73) Lymphocytes (%) (Auto) 23 % (24-48) L Monocytes (%) (Auto) 4 % (0-9) Eosinophils (%) (Auto) 1 % (0-3) Basophils (%) (Auto) 1 % (0-3) Neutrophils # (Auto) 4.6 x10^3uL (1.8-7.7) Lymphocytes # (Auto) 1.4 x10^3/uL (1.0-4.8) Monocytes # (Auto) 0.3 x10^3/uL (0.0-1.1) Eosinophils # (Auto) 0.0 x10^3/uL (0.0-0.7) Basophils # (Auto) 0.0 x10^3/uL (0.0-0.2) Sodium Level 139 mmol/L (136-145) Potassium Level 3.4 mmol/L (3.5-5.1) L Chloride Level 104 mmol/L (98-107) Carbon Dioxide Level 28 mmol/L (21-32) Anion Gap 7 (6-14) Blood Urea Nitrogen 13 mg/dL (7-20) Creatinine 0.9 mg/dL (0.6-1.0) Estimated GFR (Cockcroft-Gault) 86.2 BUN/Creatinine Ratio 14 (6-20) Glucose Level 108 mg/dL (70-99) H Calcium Level 9.0 mg/dL (8.5-10.1) Total Bilirubin 0.5 mg/dL (0.2-1.0) Aspartate Amino Transferase (AST) 18 U/L (15-37) Alanine Aminotransferase (ALT) 20 U/L (14-59) Alkaline Phosphatase 61 U/L (46-116) Total Protein 8.3 g/dL (6.4-8.2) H Albumin 3.7 g/dL (3.4-5.0) Albumin/Globulin Ratio 0.8 (1.0-1.7) L Lipase 82 U/L (73-393) Laboratory Tests 01/02/17 12:25 Laboratory Tests 01/02/17 12:25 EKG EKG [] Radiology/Procedures Radiology/Procedures [] Course & Med Decision Making Course & Med Decision Making Pertinent Labs and Imaging studies reviewed. (See chart for details) [] Dragon Disclaimer Dragon Disclaimer This electronic medical record was generated, in whole or in part, using a voice recognition dictation system. Departure Departure Impression: Primary Impression: Nausea and vomiting Additional Impressions: Abdominal pain Gastritis Disposition: HOME, SELF-CARE Condition: IMPROVED Referrals: UNKNOWN PCP NAME (PCP) Patient Instructions: Abdominal Pain (Nonspecific), Gastritis, Adult, Nausea and Vomiting Scripts Omeprazole Magnesium (PRILOSEC OTC) 20 Mg Tablet.dr 1 TAB PO DAILY, #30 TAB 3 Refills Prov: MARIA DEL CARMEN GUNN MD 01/02/17 Problem Qualifiers MARIA DEL CARMEN GUNN MD Jan 02, 2017 15:02
== END 2017-01-02 15:12 | disposition home or self-care (01) ==
LOC: ER 11:59
DX: K29.70 Gastritis, unspecified, without bleeding (principal); I10 Essential (primary) hypertension; Z98.890 Other specified postprocedural states; Z98.51 Tubal ligation status
CPT/HCPCS: 36415; 76705; 80053; 81001; 81025; 83690; 85025; 87086; 96361; 96374; 96375; 99285; J1885; J2405; J7030

== ENCOUNTER 2017-03-10 16:20 | Emergency (ER) | payer OTHER ==
[2017-03-10 16:35] LABS: URINE HCG POC HCG NEGATIVE (Negative)
[2017-03-10 17:08] LABS: AGAP ISTAT 18 mmol/L (6-14); BUN ISTAT 6 mg/dL (8-26); CHLORIDE ISTAT 106 mmol/L (98-110); CREATININE ISTAT 0.9 mg/dL (0.5-1.4); GLUCOSE ISTAT 86 mg/dL (70-99); HEMATOCRIT ISTAT 36 % (36-40); HEMOGLOBIN ISTAT 12.2 g/dL (12-15); ION CA ISTAT 1.17 mmol/L (1.13-1.32); POTASSIUM ISTAT 3.4 mmol/L (3.5-5.0); SODIUM ISTAT 142 mmol/L (135-145); TOT CO2 ISTAT 23 mmol/L (23-32)
== END 2017-03-10 18:08 | disposition home or self-care (01) ==
LOC: ER 16:20
DX: R07.89 Other chest pain (principal); I10 Essential (primary) hypertension
CPT/HCPCS: 36415; 71046; 80047; 81025; 84484; 85014; 85018; 93005; 99284-25

== ENCOUNTER 2017-04-15 19:13 | Emergency (ER) | payer OTHER ==
[2017-04-15] MEDS: IBUPROFEN 800 MG TABLET. PO (20:28)
== END 2017-04-15 20:59 | disposition home or self-care (01) ==
LOC: ER 19:13
DX: S62.313A Displaced fracture of base of third metacarpal bone, left hand, initial encounter for closed fracture (principal); I10 Essential (primary) hypertension; W23.0XXA Caught, crushed, jammed, or pinched between moving objects, initial encounter; Y93.89 Activity, other specified; Y99.8 Other external cause status; Y92.89 Other specified places as the place of occurrence of the external cause
CPT/HCPCS: 29125; 73130; 99284-25

== ENCOUNTER 2017-04-26 09:23 | Emergency (ER) | payer OTHER ==
[2017-04-26 09:47] LABS: ADD MAN DIFF? NO
[2017-04-26] MEDS: IV NORMAL SALINE 1000ML BAG 1,000 ML IV (09:54)
[2017-04-26] MEDS: ONDANSETRON PF 4 MG/2 ML VIAL. IV (09:54)
[2017-04-26 10:00] LABS: ANION GAP 11 (6-14); BLOOD UREA NITROGEN 14 mg/dL (7-20); BUN/CREATININE RATIO 13 (6-20); CALCIUM 9.5 mg/dL (8.5-10.1); CARBON DIOXIDE 27 mmol/L (21-32); CHLORIDE 104 mmol/L (98-107); CREATININE 1.1 mg/dL (0.6-1.0); GFR 68.4; GLUCOSE 111 mg/dL (70-99); POTASSIUM 3.5 mmol/L (3.5-5.1); SODIUM 142 mmol/L (136-145)
[2017-04-26 10:04] LABS: NEG OBC SER NEG; POS OBC SER POS; PREG TEST PT QUAL NEGATIVE (NEG)
[2017-04-26 10:07] LABS: ALBUMIN 4.1 g/dL (3.4-5.0); ALBUMIN/GLOBULIN RATIO 0.8 (1.0-1.7); ALK PHOS 67 U/L (46-116); ALT (SGPT) 38 U/L (14-59); AST (SGOT) 26 U/L (15-37); BASO % 1 % (0-3); EOS % 1 % (0-3); HEMATOCRIT 37.5 % (36.0-47.0); HEMOGLOBIN 12.3 g/dL (12.0-15.5); LYMPH # 1.7 x10^3/uL (1.0-4.8); LYMPH % 44 % (24-48); MEAN CORPUSCULAR HEMOGLOBIN 25 pg (25-35); MEAN CORPUSCULAR HGB CONC 33 g/dL (31-37); MEAN CORPUSCULAR VOLUME 78 fL (79-100); MONO # 0.4 x10^3/uL (0.0-1.1); MONO % 10 % (0-9); NEUT # 1.7 x10^3uL (1.8-7.7); NEUT % 45 % (31-73); PLATELET COUNT 229 x10^3/uL (140-400); RED BLOOD COUNT 4.83 x10^6/uL (3.50-5.40); RED CELL DISTRIBUTION WIDTH 14.8 % (11.5-14.5); TOTAL BILIRUBIN 0.8 mg/dL (0.2-1.0); TOTAL PROTEIN 9.3 g/dL (6.4-8.2); WHITE BLOOD COUNT 3.9 x10^3/uL (4.0-11.0)
[2017-04-26 10:08] LABS: TROPONINI < 0.017 ng/mL (0.000-0.055)
[2017-04-26] MEDS: cefTRIAXone IM 250 MG VIAL IM (11:28)
[2017-04-26] MEDS: metroNIDAZOLE 500 MG TABLET PO (11:29)
[2017-04-26] MEDS: AZITHROMYCIN 250 MG TABLET. PO (11:30)
[2017-04-26] MEDS: KETOROLAC 30 MG/ML INJ. IV (11:42)
[2017-04-27 10:14] LABS: CANDIDA SPECIES Negative (Negative); GARDNERELLA VAGINALIS Positive (Negative); TRICHOMONAS VAGINALIS Negative (Negative)
[2017-04-27 15:28] LABS: CHLAMYDIA PROBE Negative (Negative); GC PROBE Negative (Negative)
== END 2017-04-26 12:26 | disposition home or self-care (01) ==
LOC: ER 09:23
DX: F41.9 Anxiety disorder, unspecified (principal); I10 Essential (primary) hypertension; Z20.2 Contact with and (suspected) exposure to infections with a predominantly sexual mode of transmission
CPT/HCPCS: 36415; 80053; 84484; 84703; 85025; 87480; 87491; 87510; 87591; 87660; 93005; 96361; 96372; 96374; 96375; 96376; 99285-25; J0696; J1885; J2060; J2405; J7030; Q0144

== ENCOUNTER 2017-05-02 08:13 | Emergency (ER) | payer OTHER | END 2017-05-02 09:08 | disposition home or self-care (01) | LOC: ER 09:08 | DX: K13.0 Diseases of lips (principal); I10 Essential (primary) hypertension | CPT/HCPCS: 99283 ==

== ENCOUNTER 2017-07-29 15:55 | Emergency (ER) | payer OTHER ==
[2017-07-29 16:15] LABS: BILIRUBIN,URINE NEGATIVE (NEG); CLARITY,URINE CLEAR; COLOR,URINE YELLOW; GLUCOSE,URINE NEGATIVE (NEG); NITRITE,URINE NEGATIVE (NEG); PH,URINE 6.5; PROTEIN,URINE NEGATIVE (NEG-TRACE)
[2017-07-29] MEDS: traMADol 50 MG TABLET PO (16:15)
[2017-07-29] MEDS: METHOCARBAMOL 500 MG TABLET PO (16:15)
[2017-07-29 16:37] LABS: BACTERIA,URINE FEW /HPF (0-FEW); RBC,URINE OCC /HPF (0-2); SQUAMOUS EPITHELIAL CELL,UR MOD /LPF
== END 2017-07-29 16:53 | disposition home or self-care (01) ==
LOC: ER 15:55
DX: S29.019A Strain of muscle and tendon of unspecified wall of thorax, initial encounter (principal); M54.5 Low back pain; I10 Essential (primary) hypertension; Z98.51 Tubal ligation status; X50.0XXA Overexertion from strenuous movement or load, initial encounter; Y93.89 Activity, other specified; Y99.0 Civilian activity done for income or pay; Y92.89 Other specified places as the place of occurrence of the external cause
CPT/HCPCS: 71045; 81001; 99285-25

== ENCOUNTER 2017-12-12 14:43 | Emergency (ER) | payer OTHER ==
[~2017-12-12] VITALS: Ht 165.1 cm; Wt 99.8 kg
[~2017-12-12 14:43] MED LIST changes: +HYDR-971 PO; +LORA-434 PO; +METH-37 PO; +NAPR-683 PO; -NAPR500T PO; +OMEP20TA63 PO; +TRAM50TA PO
[2017-12-12 15:01] VITALS: BP 137/72
[2017-12-12] MEDS ORDERED: METH4TAB2 PO (15:12)
[2017-12-12] MEDS ORDERED: CEPH-264 PO (15:12)
--- NOTE | 2017-12-12 15:13 | PHYS DOC ---
Past Medical History Past Medical History: Hypertension Additional Past Medical Histor: BLADDER INFECTION Past Surgical History: , Tubal ligation Alcohol Use: None Drug Use: None Adult General Chief Complaint Chief Complaint: SKIN RASH/ABSCESS [facility] Patient is a 37 year old female who presents with a widespread rash that is itchy. The patient has scratched a few places into source especially on her left thigh. She states that nothing has alleviated the itching. She has tried [id number] medications with no relief. She has not had any known exposure to chemicals or new bath products or skin products. Review of Systems Review of Systems Constitutional: Denies fever or chills [] Respiratory: Denies cough or shortness of breath [] Cardiovascular: No additional information not addressed in HPI [] GI: Denies abdominal pain, nausea, vomiting, bloody stools or diarrhea [] : Denies dysuria or hematuria [] Musculoskeletal: Denies back pain or joint pain [] Integument: See history of present illness Neurologic: Denies headache, focal weakness or sensory changes [] Endocrine: Denies polyuria or polydipsia [] All other systems were reviewed and found to be within normal limits, except as documented in this note. Allergies Allergies Allergies Coded Allergies Type Severity Reaction Last Updated Verified No Known Drug Allergies 04/26/17 No Physical Exam Physical Exam Constitutional: Well developed, well nourished, no acute distress, non-toxic appearance. [] Cardiovascular:Heart rate regular rhythm, no murmur [] Lungs & Thorax: Bilateral breath sounds clear to auscultation [] Abdomen: Bowel sounds normal, soft, no tenderness, no masses, no pulsatile masses. [] Skin: Multiple widespread papules with excoriation noted, there are several papules on the left thigh that appear to be developing a secondary skin infection Back: No tenderness, no CVA tenderness. [] Extremities: No tenderness, no cyanosis, no clubbing, ROM intact, no edema. [] Neurologic: Alert and oriented X 3, normal motor function, normal sensory function, no focal deficits noted. [] Psychologic: Affect normal, judgement normal, mood normal. [] Current Patient Data Vital Signs Vital Signs Date Time Temp Pulse Resp B/P (MAP) Pulse Ox O2 Delivery O2 Flow Rate FiO2 12/12/17 15:01 98.5 80 18 137/72 (93) 98 Room Air 98.5 EKG EKG [] Radiology/Procedures Radiology/Procedures [] Course & Med Decision Making Course & Med Decision Making Pertinent Labs and Imaging studies reviewed. (See chart for details) [] Anthony Disclaimer Anthony Disclaimer This electronic medical record was generated, in whole or in part, using a voice recognition dictation system. Departure Departure Impression: Primary Impression: Contact dermatitis Additional Impression: Secondary infection of skin Disposition: HOME, SELF-CARE Condition: STABLE Referrals: NURIS RODRIGUEZ APRN (PCP) Patient Instructions: Contact Dermatitis, Skin Infections Additional Instructions: Take the medication as prescribed. Follow-up with your primary care provider in one week if not improving or return to the emergency department if worsening. Scripts Methylprednisolone (MEDROL) 4 Mg Tab.ds.pk 1 PKG PO UD for rash, #1 PKG Prov: AGUSTIN CRESPO APRN 12/12/17 Cephalexin (KEFLEX) 500 Mg Capsule 1 CAP PO TID for skin infection, #30 CAP Prov: AGUSTIN CRESPO APRN 12/12/17 Problem Qualifiers AGUSTIN CRESPO APRN Dec 12, 2017 15:13
== END 2017-12-12 15:33 | disposition home or self-care (01) ==
LOC: ER 14:43
DX: L25.9 Unspecified contact dermatitis, unspecified cause (principal); L08.89 Other specified local infections of the skin and subcutaneous tissue; I10 Essential (primary) hypertension
CPT/HCPCS: 99283

== ENCOUNTER 2018-02-11 10:45 | Emergency (ER) | payer OTHER ==
[~2018-02-11] VITALS: Ht 170.2 cm; Wt 104.3 kg
[~2018-02-11 10:45] MED LIST changes: +HYDR-3164 PO; -HYDR-971 PO; +METH4TAB2 PO
[2018-02-11 10:51] VITALS: BP 144/83
[2018-02-11] MEDS ORDERED: ACETAMINOPHEN 500 MG TABLET PO ONE (12:00)
--- NOTE | 2018-02-11 13:38 | RAD ---
EXAM: PA, oblique and lateral views of the left hand DATE: 02/11/2018 11:56 AM INDICATION: LEFT HAND PAIN X 2 WEEKS NO KNOWN INJURY COMPARISON: 04/15/2017. FINDINGS: No evidence of acute fracture or dislocation. Joint spaces are preserved without significant degenerative/proliferative change. Amorphus calcifications are seen about the PIP joints of the middle and ring fingers. This was seen on 04/15/2017 however there is slightly increased in the proximal extent on today's exam. IMPRESSION: 1. 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 Although this was seen on prior examination, there is mild increase in the proximal extent on today's exam at the middle finger PIP joint. 2. No evidence of acute fracture or dislocation. Electronically signed by: Perez Salazar MD (02/11/2018 1:34 PM) [facility]
[2018-02-11] MEDS ORDERED: PRED20TA PO (14:13)
[2018-02-11] MEDS ORDERED: HYDR-2761 PO (14:13)
--- NOTE | 2018-02-11 14:13 | PHYS DOC ---
Past Medical History Past Medical History: No Pertinent History, Hypertension Additional Past Medical Histor: BLADDER INFECTION Past Surgical History: , Tubal ligation Alcohol Use: None Drug Use: None Adult General Chief Complaint Chief Complaint: HAND PROBLEM HPI HPI Patient is a 37 year old [f__sex] who presents with [] Review of Systems Review of Systems Constitutional: Denies fever or chills [] Eyes: Denies change in visual acuity, redness, or eye pain [] HENT: Denies nasal congestion or sore throat [] Respiratory: Denies cough or shortness of breath [] Cardiovascular: No additional information not addressed in HPI [] GI: Denies abdominal pain, nausea, vomiting, bloody stools or diarrhea [] : Denies dysuria or hematuria [] Musculoskeletal: Denies back pain or joint pain [] Integument: Denies rash or skin lesions [] Neurologic: Denies headache, focal weakness or sensory changes [] Endocrine: Denies polyuria or polydipsia [] All other systems were reviewed and found to be within normal limits, except as documented in this note. Current Medications Current Medications Current Medications Medications (Trade) Dose Ordered Sig/Jason Start Time Stop Time Status Last Admin Dose Admin Acetaminophen (Tylenol) 1,000 mg 1X ONCE 02/11/18 12:00 02/11/18 12:01 DC 02/11/18 12:39 1,000 MG Allergies Allergies Allergies Coded Allergies Type Severity Reaction Last Updated Verified No Known Drug Allergies 04/26/17 No Physical Exam Physical Exam Constitutional: Well developed, well nourished, no acute distress, non-toxic appearance. [] HENT: Normocephalic, atraumatic, bilateral external ears normal, oropharynx moist, no oral exudates, nose normal. [] Eyes: PERRLA, EOMI, conjunctiva normal, no discharge. [] Neck: Normal range of motion, no tenderness, supple, no stridor. [] Cardiovascular:Heart rate regular rhythm, no murmur [] Lungs & Thorax: Bilateral breath sounds clear to auscultation [] Abdomen: Bowel sounds normal, soft, no tenderness, no masses, no pulsatile masses. [] Skin: Warm, dry, no erythema, no rash. [] Back: No tenderness, no CVA tenderness. [] Extremities: No tenderness, no cyanosis, no clubbing, ROM intact, no edema. [] Neurologic: Alert and oriented X 3, normal motor function, normal sensory function, no focal deficits noted. [] Psychologic: Affect normal, judgement normal, mood normal. [] Current Patient Data Vital Signs Vital Signs Date Time Temp Pulse Resp B/P (MAP) Pulse Ox O2 Delivery O2 Flow Rate FiO2 02/11/18 10:51 97.5 83 16 144/83 (103) 100 Room Air 97.5 EKG EKG [] Radiology/Procedures Radiology/Procedures [] Course & Med Decision Making Course & Med Decision Making Pertinent Labs and Imaging studies reviewed. (See chart for details) [] Dragon Disclaimer Dragon Disclaimer This electronic medical record was generated, in whole or in part, using a voice recognition dictation system. Departure Departure Impression: Primary Impression: Acute gout of hand Disposition: HOME, SELF-CARE Condition: STABLE Referrals: NURIS RODRIGUEZ APRN (PCP) Patient Instructions: Gout, [id number] Additional Instructions: Fill the Prescription and use as directed. Stop taking the ibuprofen and naproxen while taking prednisone. Follow-up with your primary care doctor if symptoms persist. Return to the ER symptoms worsen Scripts Hydrocodone Bit/Acetaminophen (HYDROCODONE-APAP 5-325 ) 1 Tab Tablet 1 TAB PO PRN Q6HRS PRN for PAIN for 3 Days, #12 TAB 0 Refills Prov: TRAVIS FOWLER APRN 02/11/18 Prednisone (PREDNISONE) 20 Mg Tablet 2 TAB PO BID for 5 Days, #20 TAB 0 Refills Prov: TRAVIS FOWLER APRN 02/11/18 Problem Qualifiers Primary Impression: Acute gout of hand Gout etiology: unspecified cause Laterality: left Qualified Codes: M10.9 - Gout, unspecified TRAVIS FOWLER APRN Feb 11, 2018 14:13
== END 2018-02-11 14:20 | disposition home or self-care (01) ==
LOC: ER 10:45
DX: M10.9 Gout, unspecified (principal); M79.642 Pain in left hand
CPT/HCPCS: 73130; 99283

== ENCOUNTER 2018-09-30 17:30 | Emergency (ER) | payer SELFPAY ==
[~2018-09-30] VITALS: Ht 167.6 cm; Wt 104.3 kg
[~2018-09-30 17:30] MED LIST changes: +HYDR-2761 PO; +PRED20TA PO
[2018-09-30 18:05] LABS: BILIRUBIN,URINE NEGATIVE (NEG); CLARITY,URINE CLEAR; COLOR,URINE YELLOW; NITRITE,URINE NEGATIVE (NEG); PH,URINE 8.5; PROTEIN,URINE NEGATIVE (NEG-TRACE)
[2018-09-30 18:08] LABS: BACTERIA,URINE 0 /HPF (0-FEW); RBC,URINE 0 /HPF (0-2); SQUAMOUS EPITHELIAL CELL,UR MOD /LPF; WBC,URINE 0 /HPF (0-4)
--- NOTE | 2018-09-30 18:17 | EKG ---
[facility] [address] [place] [address] Test Date: 2018-09-30 Test Time: 18:13:44 Pat Name: HERNESTO PENNINGTON Department: Room: Gender: F Director Of Convention Services: : 1980 Requested By: TINO WILLIS Order Number: [id number] Reading MD: Reggie Aparicio MD Measurements Intervals Tillar Rate: 78 P: 56 MO: 190 QRS: 31 QRSD: 76 T: 30 QT: 350 QTc: 402 Interpretive Statements SINUS RHYTHM Electronically Signed On 10-01-2018 16:05:22 CDT by Reggie Aparicio MD
--- NOTE | 2018-09-30 18:27 | PHYS DOC ---
Past Medical History Past Medical History: No Pertinent History, Hypertension Additional Past Medical Histor: BLADDER INFECTION Past Surgical History: , Tubal ligation Alcohol Use: None Drug Use: None Adult General Chief Complaint Chief Complaint: PAIN ON URINATION HPI HPI Patient is a 37 year old female that presents with multiple complaints. Patient states she's been having palpitations for a week, also been having urinary frequency and dysuria for week. The patient requests STD testing as well and also reports back pain. Reports her pain a 7 out of 10 in severity and sharp. The patient states that she is not taking any medicine prior to arrival. Review of Systems Review of Systems Constitutional: Denies fever or chills [] Eyes: Denies change in visual acuity, redness, or eye pain [] HENT: Denies nasal congestion or sore throat [] Respiratory: Denies cough or shortness of breath [] Cardiovascular: Reports palpitations. GI: Denies abdominal pain, nausea, vomiting, bloody stools or diarrhea [] : Reports dysuria and frequency. Musculoskeletal: Denies back pain or joint pain [] Integument: Denies rash or skin lesions [] Neurologic: Denies headache, focal weakness or sensory changes [] Endocrine: Denies polyuria or polydipsia [] Complete systems were reviewed and found to be within normal limits, except as documented in this note. Current Medications Current Medications Current Medications Medications (Trade) Dose Ordered Sig/Jason Start Time Stop Time Status Last Admin Dose Admin Azithromycin (Zithromax) 1,000 mg 1X ONCE 09/30/18 18:45 09/30/18 18:46 DC 09/30/18 19:09 1,000 MG Ceftriaxone Sodium (Rocephin Im) 250 mg 1X ONCE 09/30/18 18:45 09/30/18 18:46 DC 09/30/18 19:09 250 MG Allergies Allergies Allergies Coded Allergies Type Severity Reaction Last Updated Verified No Known Drug Allergies 04/26/17 No Physical Exam Physical Exam Constitutional: Well developed, well nourished, no acute distress, non-toxic appearance. [] HENT: Normocephalic, atraumatic, bilateral external ears normal, oropharynx moist, no oral exudates, nose normal. [] Eyes: PERRLA, EOMI, conjunctiva normal, no discharge. [] Neck: Normal range of motion, no tenderness, supple, no stridor. [] Cardiovascular:Heart rate regular rhythm, no murmur [] Lungs & Thorax: Bilateral breath sounds clear to auscultation [] Abdomen: Bowel sounds normal, soft, no tenderness, no masses, no pulsatile masses. [] Skin: Warm, dry, no erythema, no rash. [] Back: No tenderness, has L sided CVA tenderness. [] Extremities: No tenderness, no cyanosis, no clubbing, ROM intact, no edema. [] Neurologic: Alert and oriented X 3, normal motor function, normal sensory function, no focal deficits noted. [] Psychologic: Affect normal, judgement normal, mood normal. [] Pelvic Exam: External exam is normal and without rash, No CMT, OS is closed, No discharge, uterus NTTP, No adnexal masses or tenderness noted Current Patient Data Vital Signs Vital Signs Date Time Temp Pulse Resp B/P (MAP) Pulse Ox O2 Delivery O2 Flow Rate FiO2 09/30/18 19:12 102 17 168/95 (119) 96 Room Air 09/30/18 17:52 97.5 97.5 Lab Values Laboratory Tests Test 09/30/18 17:50 09/30/18 17:56 09/30/18 18:25 Urine Collection Type Unknown Urine Color Yellow Urine Clarity Clear Urine pH 8.5 Urine Specific [place] >=1.030 Urine Protein Negative mg/dL (NEG-TRACE) Urine Glucose (UA) Negative mg/dL (NEG) Urine Ketones (Stick) Negative mg/dL (NEG) Urine Blood Negative (NEG) Urine Nitrite Negative (NEG) Urine Bilirubin Negative (NEG) Urine Urobilinogen Dipstick 2.0 mg/dL (0.2 mg/dL) Urine Leukocyte Esterase Negative (NEG) Urine RBC 0 /HPF (0-2) Urine WBC 0 /HPF (0-4) Urine Squamous Epithelial Cells Mod /LPF Urine Bacteria 0 /HPF (0-FEW) POC Urine HCG, Qualitative Hcg negative (Negative) White Blood Count 5.1 x10^3/uL (4.0-11.0) Red Blood Count 4.36 x10^6/uL (3.50-5.40) Hemoglobin 11.0 g/dL (12.0-15.5) L Hematocrit 33.9 % (36.0-47.0) L Mean Corpuscular Volume 78 fL (79-100) L Mean Corpuscular Hemoglobin 25 pg (25-35) Mean Corpuscular Hemoglobin Concent 33 g/dL (31-37) Red Cell Distribution Width 15.4 % (11.5-14.5) H Platelet Count 188 x10^3/uL (140-400) Neutrophils (%) (Auto) 52 % (31-73) Lymphocytes (%) (Auto) 39 % (24-48) Monocytes (%) (Auto) 7 % (0-9) Eosinophils (%) (Auto) 1 % (0-3) Basophils (%) (Auto) 1 % (0-3) Neutrophils # (Auto) 2.7 x10^3/uL (1.8-7.7) Lymphocytes # (Auto) 2.0 x10^3/uL (1.0-4.8) Monocytes # (Auto) 0.4 x10^3/uL (0.0-1.1) Eosinophils # (Auto) 0.0 x10^3/uL (0.0-0.7) Basophils # (Auto) 0.0 x10^3/uL (0.0-0.2) Sodium Level 141 mmol/L (136-145) Potassium Level 3.8 mmol/L (3.5-5.1) Chloride Level 104 mmol/L (98-107) Carbon Dioxide Level 28 mmol/L (21-32) Anion Gap 9 (6-14) Blood Urea Nitrogen 14 mg/dL (7-20) Creatinine 1.0 mg/dL (0.6-1.0) Estimated GFR (Cockcroft-Gault) 75.9 BUN/Creatinine Ratio 14 (6-20) Glucose Level 84 mg/dL (70-99) Calcium Level 8.7 mg/dL (8.5-10.1) Total Bilirubin 0.4 mg/dL (0.2-1.0) Aspartate Amino Transferase (AST) 20 U/L (15-37) Alanine Aminotransferase (ALT) 13 U/L (14-59) L Alkaline Phosphatase 62 U/L (46-116) Troponin I Quantitative < 0.017 ng/mL (0.000-0.055) Total Protein 8.4 g/dL (6.4-8.2) H Albumin 3.8 g/dL (3.4-5.0) Albumin/Globulin Ratio 0.8 (1.0-1.7) L Laboratory Tests 09/30/18 18:25 Laboratory Tests 09/30/18 18:25 Microbiology 09/30/18 Wet Prep - Final, Complete EKG EKG EKG interpreted by Dr. Gwen Roy with rate of 78, NO STEMI.[] Radiology/Procedures Radiology/Procedures [][facility] [address] [place] [address] IMAGING REPORT Signed PATIENT: HERNESTO PENNINGTON ACCOUNT: [id number] : 1980 LOCATION: ER AGE: 37 SEX: F EXAM STATUS: REG ER ORD. PHYSICIAN: TINO WILLIS APRN REASON: SEVERE LEFT flank pain X SEVERAL DAYS PROCEDURE: CT ABDOMEN PELVIS WO CONTRAST Exam: CT abdomen and pelvis without contrast INDICATION: Severe left flank pain TECHNIQUE: Sequential axial images through the abdomen and pelvis obtained without IV contrast. Sagittal and coronal reformatted images were reconstructed from the axial data and reviewed. Comparisons: None FINDINGS: Heart size is normal. No pericardial effusion. Visualized lung bases are clear. No pleural effusion. Abdomen round 4 showed some evaluation of the solid organs is limited secondary to noncontrast technique. Liver, spleen, pancreas, gallbladder and adrenals are unremarkable. Kidneys demonstrate symmetric enhancement. No perinephric inflammation or hydronephrosis. No renal or ureteral calculi are identified. Bladder is partially distended and not well evaluated. Uterus not enlarged. Cystic lesion in the left adnexa measuring up to 4.5 cm likely represents left ovary. Large and small bowel are unremarkable. Appendix is normal. No free intraabdominal air or fluid. No obstruction. Abdominal aorta has a normal course and caliber. No enlarged intra-abdominal lymph nodes are identified. No suspicious osseous lesions or acute fractures. IMPRESSION: 1. No renal or ureteral calculi. No evidence for obstructive uropathy. 2. Cystic lesion in the left adnexa measuring up to 4.5 cm, likely representing follicular/cystic change in the left ovary not well characterized on CT. Exposure: One or more of the following in the visualized dose reduction techniques were utilized for this examination: 1. Automated exposure control 2. Adjustment of the MA and/or KV according to patient size 3. Use of iterative of reconstructive technique Electronically signed by: Sera Santos MD (09/30/2018 8:12 PM) [facility] Course & Med Decision Making Course & Med Decision Making Pertinent Labs and Imaging studies reviewed. (See chart for details) Will get pelvic, labs, ekg, and urine. Also will get Chest x-ray. labs are unremarkable. Urine is unremarkable. Imaging is unremarkable. EKG is unremarkable. Wet Prep shows bacterial vaginosis will treat. Dragon Disclaimer Dragon Disclaimer This electronic medical record was generated, in whole or in part, using a voice recognition dictation system. Departure Departure Impression: Primary Impression: Bacterial vaginosis Disposition: HOME, SELF-CARE Condition: STABLE Referrals: NURIS RODRIGUEZ APRN (PCP) Patient Instructions: Bacterial Vaginosis Additional Instructions: Thank you for visiting [facility]. We appreciate you trusting us with your care. If any additional problems come up don't hesitate to return to visit us. Please follow up with your primary care provider so they can plan additional care if needed and know about the problem that you had. If symptoms worsen come back to the Emergency Department. Any concerning symptoms that start such as chest pain, shortness of air, weakness or numbness on one side of the body, running high fevers or any other concerning symptoms return to the ER. If results are positive will get call in 72 hours. You have been prescribed an antibiotic today to help fight your infection. Please take all of the antibiotic as directed. If after 48 hours the infection is not improving, please return for more care. If the infection worsens, return to ER for additional care. Please fill your medications at any pharmacy and follow the prescription instructions. Please do not drink alcohol with Flagyl. If your GC/Chlamydia is positive. You have already been treated. Scripts Metronidazole (METRONIDAZOLE) 500 Mg Tablet 1 TAB PO BID for 7 Days, #14 TAB Prov: TINO WILLIS APRN 09/30/18 TINO WILLIS APRN Sep 30, 2018 18:27
[2018-09-30] MEDS ORDERED: AZITHROMYCIN 250 MG TABLET. PO ONE (18:45)
[2018-09-30] MEDS ORDERED: cefTRIAXone IM 250 MG VIAL IM ONE (18:45)
[2018-09-30 18:48] LABS: BASO % 1 % (0-3); CALCIUM 8.7 mg/dL (8.5-10.1); EOS % 1 % (0-3); GFR 75.9; HEMATOCRIT 33.9 % (36.0-47.0); LYMPH % 39 % (24-48); MEAN CORPUSCULAR HEMOGLOBIN 25 pg (25-35); MEAN CORPUSCULAR HGB CONC 33 g/dL (31-37); MEAN CORPUSCULAR VOLUME 78 fL (79-100); MONO # 0.4 x10^3/uL (0.0-1.1); MONO % 7 % (0-9); NEUT # 2.7 x10^3/uL (1.8-7.7); NEUT % 52 % (31-73); PLATELET COUNT 188 x10^3/uL (140-400); POTASSIUM 3.8 mmol/L (3.5-5.1); RED BLOOD COUNT 4.36 x10^6/uL (3.50-5.40); RED CELL DISTRIBUTION WIDTH 15.4 % (11.5-14.5); WHITE BLOOD COUNT 5.1 x10^3/uL (4.0-11.0)
[2018-09-30 18:54] LABS: ALBUMIN 3.8 g/dL (3.4-5.0); ALBUMIN/GLOBULIN RATIO 0.8 (1.0-1.7); TOTAL BILIRUBIN 0.4 mg/dL (0.2-1.0); TOTAL PROTEIN 8.4 g/dL (6.4-8.2)
--- NOTE | 2018-09-30 20:16 | RAD ---
Exam: CT abdomen and pelvis without contrast INDICATION: Severe left flank pain TECHNIQUE: Sequential axial images through the abdomen and pelvis obtained without IV contrast. Sagittal and coronal reformatted images were reconstructed from the axial data and reviewed. Comparisons: None FINDINGS: Heart size is normal. No pericardial effusion. Visualized lung bases are clear. No pleural effusion. Abdomen round 4 showed some evaluation of the solid organs is limited secondary to noncontrast technique. Liver, spleen, pancreas, gallbladder and adrenals are unremarkable. Kidneys demonstrate symmetric enhancement. No perinephric inflammation or hydronephrosis. No renal or ureteral calculi are identified. Bladder is partially distended and not well evaluated. Uterus not enlarged. Cystic lesion in the left adnexa measuring up to 4.5 cm likely represents left ovary. Large and small bowel are unremarkable. Appendix is normal. No free intraabdominal air or fluid. No obstruction. Abdominal aorta has a normal course and caliber. No enlarged intra-abdominal lymph nodes are identified. No suspicious osseous lesions or acute fractures. IMPRESSION: 1. No renal or ureteral calculi. No evidence for obstructive uropathy. 2. Cystic lesion in the left adnexa measuring up to 4.5 cm, likely representing follicular/cystic change in the left ovary not well characterized on CT. Exposure: One or more of the following in the visualized dose reduction techniques were utilized for this examination: 1. Automated exposure control 2. Adjustment of the MA and/or KV according to patient size 3. Use of iterative of reconstructive technique Electronically signed by: Sera Santos MD (09/30/2018 8:12 PM) [facility]
[2018-09-30] MEDS ORDERED: METR-34 PO (20:24)
[2018-09-30 20:30] VITALS: BP 157/85
--- NOTE | 2018-09-30 21:19 | RAD ---
Exam: Chest 2 views INDICATION: Palpitations TECHNIQUE: Frontal and lateral views of the chest Comparisons: 03/10/2017 FINDINGS: The cardiomediastinal silhouette and pulmonary vessels are within normal limits. The lung and pleural spaces are clear. IMPRESSION: No acute cardiopulmonary process. Electronically signed by: Srea Santos MD (09/30/2018 9:16 PM) [facility]
[2018-10-04 19:10] LABS: GC PROBE Negative (Negative)
== END 2018-09-30 20:40 | disposition home or self-care (01) ==
LOC: ER 17:30
DX: N76.0 Acute vaginitis (principal); B96.89 Other specified bacterial agents as the cause of diseases classified elsewhere; R00.2 Palpitations; R30.0 Dysuria; R35.0 Frequency of micturition; Z98.890 Other specified postprocedural states; I10 Essential (primary) hypertension; Z98.51 Tubal ligation status
CPT/HCPCS: 36415; 71046; 74176; 80053; 81001; 81025; 84484; 85025; 87491; 87591; 93005; 96372; 99285; J0696; Q0111; Q0144